=== PATIENT | male | born 1985 | race Caucasian/White ===

== ENCOUNTER 2016-10-21 14:28 | Emergency (ER) | payer OTHER ==
[~2016-10-21] VITALS: Ht 182.9 cm; Wt 81.6 kg
[~2016-10-21 14:28] MED LIST: ALBU2.5V7 NEB; Acetaminophen PO; Blood Sugar Diagnostic VI; CLON1TAB4 PO; GLIP5TAB13 PO; LAMO100T2 PO; MAGN400O4 PO; Metformin Hcl PO; PANT40TA2 PO; QUET100T PO
--- NOTE | 2016-10-21 14:40 | NUR ---
Dr. Zee in room for evaluation.
--- NOTE | 2016-10-21 14:47 | NUR ---
DR NARVAEZ REMOVED DANIEL FROM SCALP, PT TOLORATED WELL, NO BLEEDING NOTED.
[2016-10-21] MEDS: CYCLOBENZAPRINE HCL 10 MG TABLET PO ONE (14:51)
[2016-10-21] MEDS: IBUPROFEN 800 MG TABLET PO ONE (14:51)
[2016-10-21 14:59] VITALS: BP 121/83
--- NOTE | 2016-10-21 14:59 | NUR ---
Patient discharged to home in stable conditon. Written and verbal after care instructions given. Patient verbalizes understanding of instructions.
[2016-10-21] MEDS ORDERED: CYCLOBENZAPRINE HCL 10 MG TABLET ONE (15:01)
[2016-10-21] MEDS ORDERED: IBUPROFEN 800 MG TABLET ONE (15:01)
== END 2016-10-21 15:05 | disposition home or self-care (01) ==
LOC: ER 14:28
DX: S01.01XD Laceration without foreign body of scalp, subsequent encounter (principal); Z88.0 Allergy status to penicillin; E11.9 Type 2 diabetes mellitus without complications; M62.838 Other muscle spasm; Z76.0 Encounter for issue of repeat prescription; Z88.2 Allergy status to sulfonamides; X58.XXXD Exposure to other specified factors, subsequent encounter
CPT/HCPCS: A4663

== ENCOUNTER 2017-02-16 21:31 | Emergency (ER) | payer OTHER ==
[~2017-02-16] VITALS: Ht 180.3 cm; Wt 83.9 kg
[~2017-02-16 21:31] MED LIST changes: -MAGN400O4 PO; +MAGN400O6 PO
--- NOTE | 2017-02-16 23:40 | NUR ---
Patient eloped from facility. ER physician notified. peripheral IV removed prior to leaving facility. All belongings taken home with patient. patient refused further treatment.
== END 2017-02-16 23:51 | disposition left against medical advice (07) ==
LOC: ER 21:32
DX: E11.65 Type 2 diabetes mellitus with hyperglycemia (principal); F17.200 Nicotine dependence, unspecified, uncomplicated; E78.5 Hyperlipidemia, unspecified; Z88.0 Allergy status to penicillin; Z88.2 Allergy status to sulfonamides
CPT/HCPCS: A4663

== ENCOUNTER 2017-02-17 00:51 | Emergency (ER) | payer OTHER ==
[~2017-02-17] VITALS: Ht 180.3 cm; Wt 81.6 kg
--- NOTE | 2017-02-17 04:32 | NUR ---
Patient discharged to home in stable conditon. Written and verbal after care instructions given. Patient verbalizes understanding of instructions. Patient contacted taxi for transportation to [facility]. Patient cleared for dischrage by Dr Murray. BS at time of dischrage is 117. Patient given 2 8oz containers of [place] juice to prevent hypoglycemia for future use. No acute distress at time of dischrage. All belongings with patient. Ambulated from ER with stable gait.
[2017-02-17 04:43] VITALS: BP 131/80
== END 2017-02-17 04:45 | disposition home or self-care (01) ==
LOC: ER 00:57
DX: F11.20 Opioid dependence, uncomplicated (principal); R73.9 Hyperglycemia, unspecified; F17.200 Nicotine dependence, unspecified, uncomplicated; Z88.0 Allergy status to penicillin
CPT/HCPCS: A4663; J1815